=== PATIENT | male | born 1970 | race Caucasian/White ===

== ENCOUNTER 2018-09-16 16:19 | Outpatient (CLI) | payer SELFPAY | END 2018-09-16 16:20 | disposition critical access hospital (66) | LOC: EMS 16:19 | PROVIDERS: ATTEND Surgery | DX: R56.9 Unspecified convulsions (principal) | CPT/HCPCS: A0425; A0429 ==

== ENCOUNTER 2018-09-16 16:55 | Emergency (ER) | payer SELFPAY ==
--- NOTE | 2018-09-16 17:09 | ED Physician Documentation ---
PD HPI SEIZURE - Stated complaint Stated Complaint: SZ - Chief complaint Chief Complaint: Neuro - History obtained from History obtained from: Patient - History of Present Illness Timing - onset: Today Witnessed: Witnessed (He had finished work with coworkers and was walking along with them and talking and his coworker then turned back to see the patient was on the ground with general seizure-like activity. This lasted about 30 seconds and the patient stopped and roused slowly with initial confusion. EMS brought him to the ER here and he was improving alertness on route.) Number of seizures: Single, Lasted - seconds (about 30 seconds) Description of seizure activity: Generalized, Postictal Injury during seizure: Bit tongue. No: Head injury, Neck injury Associated symptoms: Headache. No: Vision changes, Dyspnea, Nausea / vomiting History of seizures: Known seizure disorder (he had one or two seizures about a year ago due to Dx of frontal contusion, per patient and friend (initial Dx was of a tumor, but it was decreasing on repeat imaging, so Dx as contusion instead. Was on Keppra for about 6 months, then he stopped it himself as was feeling okay.) Contributing factors: Sleep deprivation (he had not slept well the past few nights as he ran out of his Trazodone that he takes at night for sleep about 5 days ago.). No: Low blood sugar, EtOH withdrawal Similar symptoms before: Diagnosis (general seizure related to frontal contusion at the time about 1 year ago) Recently seen: Not recently seen Review of Systems Constitutional: denies: Fever, Chills Nose: denies: Rhinorrhea / runny nose, Congestion Throat: denies: Sore throat Respiratory: denies: Cough GI: denies: Abdominal Pain, Nausea, Vomiting, Diarrhea Skin: denies: Rash Musculoskeletal: denies: Neck pain, Back pain Neurologic: denies: Generalized weakness, Focal weakness, Numbness PD PAST MEDICAL HISTORY - Past Medical History Cardiovascular: None Respiratory: None Neuro: Seizure disorder - Present Medications Home Medications: Ambulatory Orders Medication Instructions Recorded Confirmed Fluoxetine HCl 40 mg PO DAILY 09/16/18 09/16/18 Levetiracetam [Keppra] 500 mg PO BID #60 tablet 09/16/18 Lisinopril 10 mg PO DAILY 09/16/18 09/16/18 Lorazepam [Ativan] 1 mg PO BID PRN #10 tablet 09/16/18 Naltrexone HCl 50 mg PO DAILY 09/16/18 09/16/18 traZODone [Desyrel] 09/16/18 traZODone [Desyrel] 50 mg PO HS PRN #15 tablet 09/16/18 - Allergies Allergies/Adverse Reactions: Allergies Allergy/AdvReac Type Severity Reaction Status Date / Time codeine AdvReac Nausea Verified 09/16/18 17:05 morphine AdvReac Nausea Verified 09/16/18 17:05 - Living Situation Living Situation: reports: With family Living Arrangement: reports: At home (in [place], and is staying here on [email or web address] with coworkers in a house while working at [employer]. ) - Social History Smoking Status: Current every day smoker Does the pt drink ETOH?: Yes ETOH Use: Beer (6-8 beers daily and has been regular with that - denies stopping recently. ) Does the pt have substance abuse?: No - Family History Family history: reports: Non contributory PD ED PE NORMAL - Vitals Vital signs reviewed: Yes - General General: Alert and oriented X 3, Well developed/nourished, Other (Mildly shaky and confused but conversant and interacts well.) - HEENT HEENT: Atraumatic, Pharynx benign, Other (mild tongue abrasion left lateral. 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 No: Normal affect (slightly anxious on arrival) Results - Vitals Vitals: Vital Signs - 24 hr 09/16/18 09/16/18 09/16/18 16:55 17:09 18:17 Temperature 36.4 C L Heart Rate 102 H 110 H 100 Respiratory 16 16 16 Rate Blood Pressure 157/105 H 157/105 H 162/98 H O2 Saturation 99 99 100 09/16/18 19:21 Temperature Heart Rate 101 H Respiratory 16 Rate Blood Pressure 137/99 H O2 Saturation 97 Oxygen O2 Source Room air - Labs Labs: Laboratory Tests 09/16/18 09/16/18 09/16/18 17:45 17:45 19:45 WBC 11.5 H RBC 4.46 L Hgb 14.4 Hct 41.3 L MCV 92.6 MCH 32.2 H MCHC 34.8 RDW 14.3 Plt Count 214 MPV 7.9 Neut # (Auto) 9.4 H Lymph # (Auto) 1.0 L [place] # (Auto) 1.0 Eos # (Auto) 0.0 Baso # (Auto) 0.0 Absolute Nucleated RBC 0.00 Nucleated RBC % 0.0 Sodium 134 L Potassium 4.1 Chloride 94 L Carbon Dioxide 25 Anion Gap 15.0 H BUN 9 Creatinine 1.0 Estimated GFR (MDRD) 80 L Glucose 111 H Calcium 10.0 Total Bilirubin 1.2 H AST 172 H ALT 116 H Alkaline Phosphatase 87 Total Protein 8.6 H Albumin 4.8 Globulin 3.8 Albumin/Globulin Ratio 1.3 Lipase 45 Urine Color DK. ORANGE Urine Clarity CLEAR Urine pH 6.5 Ur Specific [place] 1.025 Urine Protein 30 H Urine Glucose (UA) NEGATIVE Urine Ketones 15 H Urine Occult Blood TRACE-INTA Urine Nitrite NEGATIVE Urine Bilirubin NEGATIVE Urine Urobilinogen 0.2 (NORMAL) Ur Leukocyte Esterase NEGATIVE Urine RBC None Seen Urine WBC 0-3 Ur Squamous Epith Cells RARE Squamous Urine Bacteria None Seen Urine Mucus Moderate Strands Ur Microscopic Review INDICATED Urine Culture Comments NOT INDICATED Urine Opiates Screen NEGATIVE Ur Oxycodone Screen NEGATIVE Urine Methadone Screen NEGATIVE Ur Propoxyphene Screen NEGATIVE Ur Barbiturates Screen NEGATIVE Ur Tricyclics Screen NEGATIVE Ur Phencyclidine Scrn NEGATIVE Ur Amphetamine Screen NEGATIVE U Methamphetamines Scrn NEGATIVE U Benzodiazepines Scrn POSITIVE H Urine Cocaine Screen NEGATIVE U Cannabinoids Screen POSITIVE H Ethyl Alcohol < 5.0 PD MEDICAL DECISION MAKING - ED course Complexity details: re-evaluated patient (He is feeling much better with some fluids and little bit of medication here. He is fully alert and appears back to baseline.), considered differential (He had witnessed seizure by coworkers and was confused a while after. There is a mild tongue abrasion. This is consistent with generalized seizure. He had had a prior one about a year ago that was apparently injury related with a small frontal contusion though initially was evaluated as possible tumor. He had been doing well subsequently and had stopped his Keppra several months ago. He states he does drink alcohol about 6 beers a day. He denies stopping recently. He had not had any other change in medicines although he had run out of his trazodone he uses for sleep at night about 5 days ago. He states he has been without that in the past without any symptoms or withdrawal type problems. He had not had any cold or flu recently. There is no new trauma. Presumably recurrent seizure), d/w patient Departure - Departure Disposition: 01 Home, Self Care Clinical Impression: Recurrent seizures, Seizure Condition: Stable Record reviewed to determine appropriate education?: Yes Instructions: ED Seizure Recurrent Prescriptions: Levetiracetam [Keppra] 500 mg PO BID #60 tablet Lorazepam [Ativan] 1 mg PO BID PRN #10 tablet PRN Reason: Anxiety traZODone [Desyrel] 50 mg PO HS PRN #15 tablet PRN Reason: Insomnia Comments: Drink lots of fluids. Avoid excess alcohol. Resume your Keppra antiseizure medicine. Continue usual medications including the trazodone at night for sleep. You can use Ativan twice daily if needed for anxiety or restlessness over the next few days. Follow-up with your primary care when back home. Return as needed. Discharge Date/Time: 09/16/18 19:49
[2018-09-16] MEDS ORDERED: LORazepam 2 MG/ML VIAL IVP STA ×2 (17:32→18:48)
[2018-09-16] MEDS ORDERED: KETOROLAC 60 MG/2 ML VIAL IVP STA (17:32)
[2018-09-16] MEDS ORDERED: SODIUM CHLORIDE 0.9% 1,000 ML IV ONE ×2 (17:32→17:36)
[2018-09-16] MEDS ORDERED: levETIRAcetam INJ 500 MG in SODIUM CHLORIDE 0.9% 100ML 100 ML IV STA (17:37)
[2018-09-16 17:54] LABS: BASOPHILS % (AUTO) 0.4 %; EOSINOPHILS % (AUTO) 0.2 %; HGB - HEMOGLOBIN 14.4 g/dL (14.0-18.0); LYMPHOCYTES % (AUTO) 8.7 %; MEAN CORPUSCULAR HEMOGLOBIN 32.2 pg (27.0-31.0); MEAN CORPUSCULAR HGB CONC 34.8 g/dL (32.0-36.0); MEAN CORPUSCULAR VOLUME 92.6 fL (80.0-94.0); MEAN PLATELET VOLUME 7.9 fL (7.4-11.4); NEUTROPHILS # (AUTO) 9.4 10^3/uL (1.5-6.6); NEUTROPHILS % (AUTO) 81.7 %; PLT - PLATELET COUNT 214 10^3/uL (130-450); RED BLOOD COUNT 4.46 10^6/uL (4.70-6.10); RED CELL DISTRIBUTION WIDTH 14.3 % (12.0-15.0); WHITE BLOOD COUNT 11.5 x10^3/uL (4.8-10.8)
[2018-09-16 18:09] LABS: ALBUMIN 4.8 g/dL (3.2-5.5); ALBUMIN/GLOBULIN RATIO 1.3 (1.0-2.2); ALKALINE PHOSPHATASE 87 IU/L (42-121); ALT ALANINE AMINOTRANSFERASE 116 IU/L (10-60); AST ASPARTATE AMINOTRANSFERASE 172 IU/L (10-42); BILIRUBIN,TOTAL 1.2 mg/dL (0.2-1.0); BUN - BLOOD UREA NITROGEN 9 mg/dL (6-20); CARBON DIOXIDE - CO2 25 mmol/L (21-32); CHLORIDE 94 mmol/L (101-111); GFR - MDRD 80 (>89); GLUCOSE 111 mg/dL (70-100); LIPASE 45 U/L (22-51); SODIUM 134 mmol/L (135-145); TOTAL PROTEIN 8.6 g/dL (6.7-8.2)
[2018-09-16 19:22] VITALS: BP 137/99
[2018-09-16 19:54] LABS: MUDS CUTOFF CONCENTRATIONS CUTOFF CONC BELOW:
[2018-09-16 19:55] LABS: BILIRUBIN,URINE NEGATIVE (NEGATIVE); GLUCOSE, URINE (UA) NEGATIVE (NEGATIVE); KETONES,URINE (UA) 15 mg/dL (NEGATIVE); LEUKOCYTE ESTERASE, URINE NEGATIVE (NEGATIVE); NITRITE,URINE NEGATIVE (NEGATIVE); OCCULT BLOOD,URINE TRACE-INTA (NEGATIVE); PH,URINE 6.5 PH (5.0-7.5); PROTEIN,URINE 30 mg/dL (NEGATIVE); UROBILINOGEN,URINE 0.2 (NORMAL) E.U./dL (NORMAL)
[2018-09-16 19:58] LABS: CLARITY,URINE CLEAR (CLEAR)
[2018-09-16 20:04] LABS: BACTERIA,URINE None Seen /HPF (None Seen); MUCUS,URINE Moderate Strands; RBC,URINE None Seen /HPF (0-5); SQUAMOUS EPITHELIAL CELL,UR RARE Squamous (<= Few)
[2018-09-16 20:05] LABS: AMPHETAMINE SCREEN,URINE NEGATIVE (NEGATIVE); BENZODIAZEPINES SCREEN, URINE POSITIVE (NEGATIVE); COCAINE SCREEN URINE NEGATIVE (NEGATIVE); METHAMPHETAMINES SCREEN, URINE NEGATIVE (NEGATIVE); OPIATE SCREEN, URINE NEGATIVE (NEGATIVE)
[2018-09-16 20:06] LABS: METHADONE SCREEN, URINE NEGATIVE (NEGATIVE); OXYCODONE SCREEN, URINE NEGATIVE (NEGATIVE); PROPOXYPHENE SCREEN, URINE NEGATIVE (NEGATIVE); TRICYCLIC ANTIDEPRESSANT,URINE NEGATIVE (NEGATIVE)
--- NOTE | 2018-09-17 08:49 | ED Physician Documentation ---
ED Addendum - Addendum Addendum: The patient called today stating that he had left the prescription for Keppra, Ativan, and trazodone in the taxi last night when he left the emergency department. He is requesting a new prescription. I agreed to call in a new prescription for Keppra, but declined to write new prescriptions for Ativan or trazodone. 09/17/18 08:47
== END 2018-09-16 19:49 | disposition home or self-care (01) ==
LOC: ED 16:55
DX: G40.909 Epilepsy, unspecified, not intractable, without status epilepticus (principal); F17.200 Nicotine dependence, unspecified, uncomplicated
CPT/HCPCS: 36415; 80053; 80306; 80320; 81001; 83690; 85025; 96365; 96375; 96376; 99284; J2060; 81003; 87086